=== PATIENT | female | born 1985 | race African-American/Black ===

== ENCOUNTER 2022-04-16 14:54 | Emergency (ER) | payer SELFPAY ==
[2022-04-16] MEDS ORDERED: IBUPROFEN 400 MG TAB ONE (15:31)
[2022-04-16] MEDS ORDERED: NA CHLORIDE 0.9% 1,000 ML ONE ×2 (15:31→17:06)
[2022-04-16 15:56] LABS: Absolute Lymphocytes (CBC) 1.8 K/uL (0.7-4.9); Hematocrit 31.8 % (36.0-45.0); Lymphocytes % 12.2 % (15.3-44.8); MCV 76.6 fL (80-100); MPV 7.6 fL (7.6-11.3); RBC Red Blood Cell Count 4.14 M/uL (3.86-4.86)
[2022-04-16 16:10] LABS: Potassium 2.9 mmol/L (3.5-5.1)
[2022-04-16] MEDS ORDERED: POTASSIUM CL SA 10 MEQ TAB PO ONE (16:14)
[2022-04-16 16:32] LABS: SARS-COV-2 RT PCR POSITIVE (NEGATIVE)
[2022-04-16] MEDS ORDERED: KCL 20 MEQ/100 mL IVPB 100 ML IV ONE (17:07)
[2022-04-16 17:09] LABS: Urine Blood 3+ (Negative); Urine Glucose Trace (Negative); Urine Protein 2+ (Negative); Urine Specific Gravity 1.015 (1.005-1.030)
--- NOTE | 2022-04-16 17:09 | RAD REPORT ---
EXAM DESCRIPTION: RAD - Chest Single View - 04/16/2022 5:02 pm CLINICAL HISTORY: Cough COMPARISON: No comparisons FINDINGS: Lines: None. Lungs: No evidence of edema or pneumonia. Pleural: No significant pleural effusions or pneumothorax. Cardiac: The heart size is within normal limits. Mediastinum: Within normal limits. Bones: No acute fractures. Other: None IMPRESSION: No acute cardiopulmonary disease.
[2022-04-16 17:27] LABS: Blood Morphology Comment NOT SEEN (NOT SEEN); Platelet Estimate ADEQ
[2022-04-16 18:41] LABS: Urine Specific Gravity/Preg 1.015 (1.005-1.030)
[2022-04-16 19:51] LABS: Potassium 3.4 mmol/L (3.5-5.1)
--- NOTE | 2022-04-16 20:01 | EDPHYS ---
Physician Documentation [facility] Name: Vicky Stearns Age: 37 yrs Sex: Female : 1985 Arrival Date: 04/16/2022 Time: 14:55 Bed 26 Private MD: ED Physician Navneet Lopez HPI: 04/16 16:03 This 37 yrs old Black Female presents to ER via Wheelchair with complaints of Fever, kb Congestion, Vomiting/Diarrhea, Breathing Difficulty. 16:03 The patient or guardian reports cough, that is intermittent, described as mild, flu kb symptoms, low-grade fever, myalgias. Onset: The symptoms/episode began/occurred 3 week(s) ago. Severity of symptoms: At their worst the symptoms were moderate, in the emergency department the symptoms are unchanged. Modifying factors: The symptoms are alleviated by nothing, the symptoms are aggravated by nothing. Associated signs and symptoms: Pertinent positives: diarrhea, fever, nausea, rhinorrhea, vomiting. The patient has not experienced similar symptoms in the past. The patient has not recently seen a physician. 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 - Social history:: Smoking status: Patient denies any tobacco usage or history of. ROS: 16:00 Cardiovascular: Negative for chest pain, palpitations, and edema. kb 16:00 Constitutional: Positive for body aches, chills, fatigue, fever, malaise. 16:00 ENT: Positive for rhinorrhea, sinus congestion. 16:00 Respiratory: Positive for cough, Negative for dyspnea on exertion, hemoptysis, orthopnea, pleurisy, shortness of breath, sputum production, wheezing. 16:00 Abdomen/GI: Positive for nausea, vomiting, and diarrhea, Negative for abdominal pain. 16:00 All other systems are negative. Exam: 16:02 Constitutional: This is a well developed, well nourished patient who is awake, alert, kb and in no acute distress. Head/Face: Normocephalic, atraumatic. ENT: Moist Mucous membranes Cardiovascular: Regular rate and rhythm with a normal S1 and S2. No gallops, murmurs, or rubs. No pulse deficits. Respiratory: Respirations even and unlabored. No increased work of breathing. Talking in full sentences Abdomen/GI: Soft, non-tender. No distention Skin: Warm, dry with normal turgor. Normal color. MS/ Extremity: Pulses equal, no cyanosis. Neurovascular intact. Full, normal range of motion. Neuro: Awake and alert, GCS 15, oriented to person, place, time, and situation. Moves all extremities. Normal gait. Psych: Awake, alert, with orientation to person, place and time. Behavior, mood, and affect are within normal limits. Vital Signs: 15:19 BP 108 / 93; Pulse 129; Resp 20; Temp 102.6; Pulse Ox 99% ; Weight 127.01 kg; Height 5 kb3 ft. 9 in. (175.26 cm); Pain 10/10; 16:15 BP 123 / 76; Pulse 120; Resp 18; Pulse Ox 99% on R/A; tp1 17:37 BP 130 / 75; Pulse 104; Resp 16; Pulse Ox 99% on R/A; tp1 18:39 BP 122 / 79; Pulse 95; Resp 20; Pulse Ox 100% on R/A; tp1 19:21 Temp 99.2; tp1 15:19 Body Mass Index 41.35 (127.01 kg, 175.26 cm) kb3 MDM: 15:23 Patient medically screened. kb 16:01 Data reviewed: vital signs, nurses notes. Data interpreted: Pulse oximetry: on room air kb is 99 %. Interpretation: normal. 04/16 15:24 Order name: CBC with Diff; Complete Time: 17:27 kb 04/16 15:24 Order name: Basic Metabolic Panel; Complete Time: 16:12 kb 04/16 15:24 Order name: COVID-19/FLU A+B; Complete Time: 16:35 kb 04/16 16:00 Order name: Manual Differential; Complete Time: 17:27 EDMS 04/16 16:04 Order name: [place] Screen Profile; Complete Time: 16:23 kb 04/16 15:24 Order name: Chest Single View XRAY; Complete Time: 17:13 kb 04/16 16:58 Order name: Lactate w/ 2H reflex if indic.; Complete Time: 17:27 EDNE 04/16 16:58 Order name: Blood Culture [facility] 04/16 17:09 Order name: Urine --Ancillary (enter results); Complete Time: 18:42 kj1 04/16 17:10 Order name: Urine Dipstick-Ancillary; Complete Time: 17:13 EDNE 04/16 17:38 Order name: Blood Culture [facility] 04/16 18:43 Order name: BMP; Complete Time: 19:53 kb 04/16 15:24 Order name: IV Start; Complete Time: 15:45 kb 04/16 18:33 Order name: Vital Signs; Complete Time: 18:41 kb 04/16 19:04 Order name: Recheck Vital Signs: Temp please; Complete Time: 19:22 snw Administered Medications: 15:45 Drug: Ibuprofen 800 mg Route: PO; tp1 17:18 Follow up: Response: Pain is decreased tp1 15:45 Drug: NS 0.9% 1000 ml Route: IV; Rate: 1000 ml; Site: left antecubital; tp1 17:18 Follow up: IV Status: Completed infusion; IV Intake: 1000ml tp1 16:20 Drug: Potassium Chloride 40 mEq Route: PO; tp1 17:14 Drug: Potassium Chloride 20 mEq Route: IV; Rate: calculated rate; Site: left tp1 antecubital; 17:17 Drug: NS 0.9% 1000 ml Route: IV; Rate: 125 ml/hr; Site: left antecubital; tp1 Disposition: 17:21 Co-signature as Attending Physician, Navneet CRAWFORD was immediately available on-site ms3 in the Emergency Department for consultation in the care of the patient. Disposition Summary: 04/16/22 20:00 Discharge Ordered Location: Home snw Condition: Stable snw Diagnosis - SARS-associated coronavirus as the cause of diseases classified elsewhere snw - Hypokalemia snw - Dehydration snw Followup: snw - With: Emergency Department - When: As needed - Reason: Worsening of condition Followup: snw - With: Private Physician - When: 5 - 6 days - Reason: Recheck today's complaints, Continuance of care, Re-evaluation by your physician Discharge Instructions: - Discharge Summary Sheet snw - Dehydration, Adult snw - Potassium Content of Foods snw - Aspirin and Your Heart snw - Hypokalemia snw - Rehydration, Adult snw - COVID-19 snw - 10 Things You Can Do to Manage Your COVID-19 Symptoms at Home - [facility] snw - COVID-19: Quarantine vs. Isolation - [facility] snw Forms: - Medication Reconciliation Form snw - Thank You Letter snw - Antibiotic Education snw - Prescription Opioid Use snw - Work release form hb Prescriptions: - Zyrtec 10 mg Oral Tablet - take 1 tablet by ORAL route once daily As needed; 20 tablet; Refills: 0, snw Product Selection Permitted - Prednisone 20 mg Oral Tablet - take 2 tablets by ORAL route once daily for 5 days; 10 tablet; Refills: 0, snw Product Selection Permitted - Pepcid 20 mg Oral Tablet - take 1 tablet by ORAL route once daily; 20 tablet; Refills: 0, Product snw Selection Permitted Signatures: Dispatcher [employer] EDMS Renay Ybarra FNP-C FNP-Ckb Suzette Zurita FNP-C FNP-Navneet Riojas DO DO ms3 Vicky Hankins, RN RN tp1 Abiola Olivares RN RN kb3 Corrections: (The following items were deleted from the chart) 15:24 15:23 PSHx: None; kb3 kb3 18:34 18:26 BLOOD CULTURE*+BA.LAB.BRZ ordered. EDMS EDMS 18:34 18:26 LACTATE+C.LAB.BRZ ordered. EDMS EDMS
--- NOTE | 2022-04-16 20:01 | ER ---
Nurse's Notes [facility] Name: Vicky Stearns Age: 37 yrs Sex: Female : 1985 Arrival Date: 04/16/2022 Time: 14:55 Bed 26 Private MD: Diagnosis: SARS-associated coronavirus as the cause of diseases classified elsewhere;Hypokalemia;Dehydration Presentation: 04/16 15:19 Chief complaint: Patient states: fever, congestion, cough, diarrhea, nausea/vomiting kb3 since the beginning of the month, worse over the last week. Coronavirus screen: Vaccine status: Patient reports receiving the 2nd dose of the covid vaccine. Client denies travel out of the [place] in the last 14 days. Ebola Screen: Patient negative for fever greater than or equal to 101.5 degrees Fahrenheit, and additional compatible Ebola Virus Disease symptoms Patient denies exposure to infectious person. Patient denies travel to an Ebola-affected area in the 21 days before illness onset. Initial Sepsis Screen: Does the patient meet any 2 criteria? Temp <36.0*C (96.8*F)) or > 38.3*C (100.9*F). HR > 90 bpm. Yes Does the patient have a suspected source of infection? No. Patient's initial sepsis screen is negative. Initial Sepsis Screen: Does the patient have a suspected source of infection? Yes: Productive cough/pneumonia. Risk Assessment: Do you want to hurt yourself or someone else?. Onset of symptoms was March 22, 2022. 15:19 Method Of Arrival: Wheelchair kb3 15:19 Acuity: JASON 3 kb3 Triage Assessment: 15:23 General: Appears in no apparent distress. ill, Behavior is calm, cooperative. kb3 Respiratory: Reports shortness of breath cough that is Airway Breath sounds are clear. 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 - Social history:: Smoking status: Patient denies any tobacco usage or history of. Screenin:18 Abuse screen: Denies threats or abuse. Denies injuries from another. Nutritional tp1 screening: No deficits noted. Tuberculosis screening: No symptoms or risk factors identified. Fall Risk None identified. Assessment: 15:47 General: Appears in no apparent distress. uncomfortable, Behavior is calm, cooperative. tp1 Pain: Complains of pain in generalized body Pain does not radiate. Quality of pain is described as aching. Pain: Pain currently is 7 out of 10 on a pain scale. Neuro: Level of Consciousness is awake, alert, obeys commands, Oriented to person, place, time, situation. Cardiovascular: Patient's skin is warm and dry. Respiratory: Airway is patent Respiratory effort is even, unlabored. Respiratory: Reports cough that is. GI: Abdomen is obese, Abd is soft X 4 quads Abdomen is tender to palpation in right upper quadrant Reports diarrhea, nausea, vomiting. : No signs and/or symptoms were reported regarding the genitourinary system. EENT: Reports nasal congestion. Derm: Skin is pink, warm \T\ dry. Musculoskeletal: Circulation, motion, and sensation intact. 16:55 Reassessment: Patient appears in no apparent distress at this time. No changes from tp1 previously documented assessment. Patient and/or family updated on plan of care and expected duration. Pain level reassessed. Patient is alert, oriented x 3, equal unlabored respirations, skin warm/dry/pink. 17:17 Reassessment: received VO from EDWARD Ybarra to Administer NS 1000ml IV X1. tp1 18:38 Reassessment: Patient appears in no apparent distress at this time. No changes from tp1 previously documented assessment. Patient is alert, oriented x 3, equal unlabored respirations, skin warm/dry/pink. Vital Signs: 15:19 BP 108 / 93; Pulse 129; Resp 20; Temp 102.6; Pulse Ox 99% ; Weight 127.01 kg; Height 5 kb3 ft. 9 in. (175.26 cm); Pain 10/10; 16:15 BP 123 / 76; Pulse 120; Resp 18; Pulse Ox 99% on R/A; tp1 17:37 BP 130 / 75; Pulse 104; Resp 16; Pulse Ox 99% on R/A; tp1 18:39 BP 122 / 79; Pulse 95; Resp 20; Pulse Ox 100% on R/A; tp1 19:21 Temp 99.2; tp1 15:19 Body Mass Index 41.35 (127.01 kg, 175.26 cm) kb3 ED Course: 14:55 Patient arrived in ED. as 14:59 Renay Ybarra FNP-C is PHCP. kb 14:59 Navneet Lopez DO is Attending Physician. kb 15:23 Triage completed. kb3 15:23 Arm band placed on right wrist. kb3 15:28 Vicky Hankins, RN is Primary Nurse. tp1 15:49 No provider procedures requiring assistance completed. Inserted saline lock: 20 gauge tp1 in left antecubital area, using aseptic technique. Blood collected. 16:50 First set of blood cultures drawn. mm9 16:54 Patient has correct armband on for positive identification. Bed in low position. Call mm9 light in reach. Side rails up X 1. Adult w/ patient. Pulse ox on. NIBP on. 17:04 Chest Single View XRAY In Process Unspecified. EDMS 17:09 Lactate w/ 2H reflex if indic. Sent. mm9 17:09 Blood Culture Sent. mm9 19:03 PHCP role handed off by Renay Ybarra FNP-C snw 19:03 Suzette Zurita FNP-C is PHCP. snw 20:14 IV discontinued, intact, bleeding controlled, No redness/swelling at site. Pressure hb dressing applied. Administered Medications: 15:45 Drug: Ibuprofen 800 mg Route: PO; tp1 17:18 Follow up: Response: Pain is decreased tp1 15:45 Drug: NS 0.9% 1000 ml Route: IV; Rate: 1000 ml; Site: left antecubital; tp1 17:18 Follow up: IV Status: Completed infusion; IV Intake: 1000ml tp1 16:20 Drug: Potassium Chloride 40 mEq Route: PO; tp1 17:14 Drug: Potassium Chloride 20 mEq Route: IV; Rate: calculated rate; Site: left tp1 antecubital; 17:17 Drug: NS 0.9% 1000 ml Route: IV; Rate: 125 ml/hr; Site: left antecubital; tp1 Medication: 17:20 VIS not applicable for this client. tp1 Intake: 17:18 IV: 1000ml; Total: 1000ml. tp1 Outcome: 20:00 Discharge ordered by . alycia 20:14 Discharged to home ambulatory. hb 20:14 Condition: stable 20:14 Discharge instructions given to patient, Instructed on discharge instructions, follow up and referral plans. medication usage, Demonstrated understanding of instructions, follow-up care, medications, Prescriptions given X 3. 20:15 Patient left the ED. hb Signatures: Dispatcher [employer] EDMS Renay Ybarra, PHIILP MATTHEWS-Suzette Daniel FNP-Zenon MATTHEWS-Anat Mccoy as Savannah Chen, RN RN Vicky Hankins RN RN tp1 Abiola Olivares RN RN [email or web address] Elayne Farrell mm9 Corrections: (The following items were deleted from the chart) 15:24 15:23 PSHx: None; kb3 kb3
[2022-04-16 20:46] VITALS: BP 122/79; O2SAT 100
[2022-04-16 20:47] VITALS: TEMP 99.2
== END 2022-04-16 20:15 | disposition home or self-care (01) ==
LOC: ER 14:54
DX: U07.1 COVID-19 (principal); E87.6 Hypokalemia; E86.0 Dehydration; Z88.0 Allergy status to penicillin
CPT/HCPCS: 0240U; 36415; 71045; 80048; 81003; 81025; 83605; 85025; 86308; 87040; 96361; 96374; 99284; J3480; J7030

== ENCOUNTER 2022-07-20 17:57 | Emergency (ER) | payer SELFPAY ==
[2022-07-20] MEDS ORDERED: NA CHLORIDE 0.9% 1,000 ML ONE ×2 (19:29→20:26)
[2022-07-20] MEDS ORDERED: KETOROLAC 30 MG/ML INJ ONE (19:29)
[2022-07-20] MEDS ORDERED: FAMOTIDINE 20 MG/2 ML VIAL IV ONE (19:29)
[2022-07-20] MEDS ORDERED: ONDANSETRON 4 MG/2 ML VIAL ONE (19:29)
[2022-07-20 19:40] LABS: Urine Blood 3+ (Negative); Urine Glucose Negative (Negative); Urine Protein 3+ (Negative); Urine Specific Gravity 1.015 (1.005-1.030)
[2022-07-20 19:45] LABS: Absolute Lymphocytes (CBC) 1.4 K/uL (0.7-4.9); Hematocrit 30.1 % (36.0-45.0); Lymphocytes % 8.1 % (15.3-44.8); MCV 75.9 fL (80-100); MPV 6.7 fL (7.6-11.3); RBC Red Blood Cell Count 3.97 M/uL (3.86-4.86)
[2022-07-20 20:05] LABS: Transitional Epithelial <5 /HPF (None Seen); Urine Bacteria <20 /HPF (<20); Urine Mucus Slight /HPF (None Seen); Urine RBC >50 /HPF (None Seen)
[2022-07-20 20:07] LABS: Albumin 2.6 g/dL (3.4-5.0); Bilirubin Total 0.3 mg/dL (0.2-1.0); Protein, Total 10.1 g/dL (6.4-8.2)
[2022-07-20] MEDS ORDERED: MORPHINE 4 MG/ML SYR ONE (20:07)
[2022-07-20 20:10] LABS: Potassium 2.7 mmol/L (3.5-5.1)
[2022-07-20] MEDS ORDERED: KCL 20 MEQ/100 mL IVPB 200 ML IV ONE (20:25)
--- NOTE | 2022-07-20 21:06 | RAD REPORT ---
EXAM DESCRIPTION: US - Abdomen Exam Limited - 07/20/2022 8:32 pm CLINICAL HISTORY: ABD PAIN COMPARISON: No comparisons FINDINGS: The gallbladder demonstrates extensive cholelithiasis. No pericholecystic fluid or gallbla dder wall thickening. The common bile duct is normal measuring 3 mm. The liver demonstrates no findings of intrahepatic biliary dilatation. IMPRESSION: Extensive cholelithiasis.
--- NOTE | 2022-07-20 21:44 | RAD REPORT ---
EXAM DESCRIPTION: CTAbdomen Pelvis W Contrast - 07/20/2022 9:23 pm CLINICAL HISTORY: Abdominal pain. ABD PAIN COMPARISON: No comparisons TECHNIQUE: Biphasic CT imaging of the abdomen and pelvis was performed with 100 ml non-ionic IV cont rast. All CT scans are performed using dose optimization technique as appropriate and may include automated exposure control or mA/KV adjustment according to patient size. FINDINGS: The lung bases are clear. The liver, spleen, pancreas, adrenal glands and kidneys are within normal limits. No bowel obstruction or free air. Nonvisualized appendix. There is a in abnormal thick walled large f luid collection in the upper pelvis measuring 13.0 x 8.0 x 10.0 cm. This contains small air bubbles. This appears to communicate with multiple loculated cystic lesions along the right aspect of the uter us. Mild surrounding fat stranding. No evidence of significant lymphadenopathy. IUD is present. No suspicious bony findings. IMPRESSION: Large, thick walled solid and cystic lesion is identified in the right aspect of the pel vis superior to the uterus as described. Most likely this is related to infection/ tubo-ovarian absce ss. Due to the location, this collection would not be amenable to percutaneous drainage.
[2022-07-20 22:17] LABS: Urine Specific Gravity/Preg 1.015 (1.005-1.030)
[2022-07-20] MEDS ORDERED: NA CHLORIDE 0.9% 100 ML ONE (22:31)
[2022-07-20] MEDS ORDERED: CEFOXITIN SODIUM 1 GM/VIAL ONE (22:31)
[2022-07-20] MEDS ORDERED: DOXYCYCLINE HYCLATE 100MG INJ ONE (23:00)
[2022-07-20 23:07] LABS: SARS-CoV-2 Antigen Rapid Res Negative (Negative)
[2022-07-20] MEDS ORDERED: NA CHLORIDE 0.9% 50 ML ONE (23:13)
--- NOTE | 2022-07-20 23:26 | ER ---
Nurse's Notes [facility] Name: Vicky Stearns Age: 37 yrs Sex: Female : 1985 Arrival Date: 07/20/2022 Time: 17:59 Bed 16 Private MD: Diagnosis: tubo-Ovarian abscess;Sepsis, unspecified organism Presentation: 07/20 18:07 Chief complaint: Patient states: cant stop vomiting and diarrhea for 7 days and jh5 everything that comes out is water. It's been going on for 7 days with fever with abdominal pain. Coronavirus screen: Vaccine status: Patient reports receiving the 2nd dose of the covid vaccine. Client denies travel out of the [place] in the last 14 days. Ebola Screen: Patient negative for fever greater than or equal to 101.5 degrees Fahrenheit, and additional compatible Ebola Virus Disease symptoms Patient denies exposure to infectious person. Patient denies travel to an Ebola-affected area in the 21 days before illness onset. Initial Sepsis Screen: Does the patient meet any 2 criteria? No. Patient's initial sepsis screen is negative. Does the patient have a suspected source of infection? No. Patient's initial sepsis screen is negative. Risk Assessment: Do you want to hurt yourself or someone else? Patient reports no desire to harm self or others. 18:07 Method Of Arrival: Ambulatory [facility] 18:07 Acuity: JASON 3 jh5 23:44 Onset of symptoms is unknown. lg3 Triage Assessment: 18:09 General: Appears in no apparent distress. uncomfortable, obese, Behavior is calm, jh5 cooperative, appropriate for age. Pain: Complains of pain in abdomen. GI: Reports lower abdominal pain, upper abdominal pain, diarrhea, nausea. 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 - Social history:: Smoking status: Patient denies any tobacco usage or history of. Screenin:27 [facility] ED Fall Risk Assessment (Adult) History of falling in the last 3 months, lg3 including since admission No falls in past 3 months (0 pts). Abuse screen: Denies threats or abuse. Denies injuries from another. Nutritional screening: No deficits noted. Tuberculosis screening: No symptoms or risk factors identified. Assessment: 19:27 General: Appears in no apparent distress. uncomfortable, Behavior is calm, cooperative. lg3 Pain: Complains of pain in abdomen. Neuro: No deficits noted. [place] Agitation-Sedation Scale (RASS): 0 - Alert and Calm Level of Consciousness is awake, alert, obeys commands, Oriented to person, place, time, situation. Cardiovascular: No deficits noted. Denies chest pain, shortness of breath, Capillary refill < 3 seconds Clubbing of nail beds is absent JVD is absent. Respiratory: No deficits noted. Airway is patent Trachea midline Respiratory effort is even, unlabored, Respiratory pattern is regular, symmetrical. GI: Abdomen is round non-distended, obese, Bowel sounds present X 4 quads. Abd is soft X 4 quads Abdomen is tender to palpation in left lower quadrant Reports lower abdominal pain, upper abdominal pain, diarrhea, intolerance of fluids, intolerance of food, nausea, vomiting. : No deficits noted. No signs and/or symptoms were reported regarding the genitourinary system. EENT: No deficits noted. No signs and/or symptoms were reported regarding the EENT system. Derm: No deficits noted. No signs and/or symptoms reported regarding the dermatologic system. Skin is intact, is healthy with good turgor, Skin is dry, Skin is normal. Musculoskeletal: No deficits noted. No signs and/or symptoms reported regarding the musculoskeletal system. Circulation, motion, and sensation intact. Range of motion: intact in all extremities. 19:50 Pain: Complains of pain in diaphragm Pain radiates to back Pain currently is 9 out of lg3 10 on a pain scale. 21:22 Reassessment: Patient appears in no apparent distress at this time. No changes from lg3 previously documented assessment. Patient and/or family updated on plan of care and expected duration. Pain level reassessed. Patient is alert, oriented x 3, equal unlabored respirations, skin warm/dry/pink. Patient states symptoms have improved. 22:56 Reassessment: Patient appears in no apparent distress at this time. No changes from lg3 previously documented assessment. Patient and/or family updated on plan of care and expected duration. Pain level reassessed. Patient is alert, oriented x 3, equal unlabored respirations, skin warm/dry/pink. 23:44 General: report called to WILY Rinaldi. lg3 Vital Signs: 18:07 BP 120 / 84; Pulse 131; Resp 18; Temp 99.9; Pulse Ox 96% ; Weight 122.47 kg; Height 5 5 ft. 9 in. (175.26 cm); Pain 10/10; 21:23 BP 126 / 81; Pulse 112; Resp 18; Temp 99.4(O); Pulse Ox 97% on R/A; Pain 5/10; lg3 22:57 BP 114 / 72; Pulse 115; Resp 17 S; Pulse Ox 100% on R/A; lg3 18:07 Body Mass Index 39.87 (122.47 kg, 175.26 cm) 5 ED Course: 17:59 Patient arrived in ED. rg4 18:04 [facility]bar[facility]-C [facility]. kb 18:04 Ari Benz MD is Attending Physician. kb 18:09 Triage completed. 5 18:09 Arm band placed on right wrist. 5 19:27 Ines Garzon, RN is Primary Nurse. lg3 19:27 Patient has correct armband on for positive identification. Placed in gown. Bed in low lg3 position. Call light in reach. Side rails up X 1. Client placed on continuous cardiac and pulse oximetry monitoring. NIBP monitoring applied. Door closed. Noise minimized. Warm blanket given. Family accompanied patient. 19:39 CBC with Diff Sent. lg3 19:39 CMP Sent. lg3 19:39 Lipase Sent. lg3 19:41 Inserted saline lock: 20 gauge in left antecubital area, using aseptic technique. Blood oe collected. 19:46 Urine --Ancillary (enter results) Sent. lg3 19:46 Urine Microscopic Only Sent. lg3 19:53 Attending Physician role handed off by Ari Benz MD rt 19:53 Patrick Osorio MD is Attending Physician. rt 20:38 Magnesium Sent. lg3 22:20 SARS RAPID Sent. lg3 23:13 Inserted saline lock: 22 gauge in right hand, using aseptic technique. lg3 23:14 Urine Culture Sent. lg3 23:44 No provider procedures requiring assistance completed. Patient transferred, IV remains lg3 in place. intact, No redness/swelling at site. Administered Medications: 19:39 Drug: NS 0.9% 1000 ml Route: IV; Rate: 1 bolus; Site: left antecubital; lg3 23:14 Follow up: IV Status: Completed infusion; IV Intake: 1000ml lg3 19:39 Drug: Pepcid (famotidine) 20 mg Route: IVP; Site: left antecubital; lg3 23:14 Follow up: Response: No adverse reaction lg3 19:39 Drug: TORadol - (ketorolac) 15 mg Route: IVP; Site: left antecubital; lg3 23:14 Follow up: Response: No adverse reaction lg3 19:41 Drug: Zofran (Ondansetron) 4 mg Route: IVP; Site: left antecubital; lg3 23:13 Follow up: Response: No adverse reaction; Marked relief of symptoms lg3 20:05 Drug: morphine 4 mg Route: IVP; Infused Over: 4 mins; Site: left antecubital; lg3 23:14 Follow up: Response: No adverse reaction; Marked relief of symptoms lg3 20:38 Drug: Potassium Chloride 40 mEq Route: IV; Rate: calculated rate; Site: left lg3 antecubital; 23:16 Follow up: Response: No adverse reaction; IV Status: Completed infusion; IV Intake: lg3 100ml 20:46 Drug: NS 0.9% 1000 ml Route: IV; Rate: 1000 ml; Site: left antecubital; lg3 07/21 00:22 Follow up: IV Status: Completed infusion; IV Intake: 1000ml lg3 07/20 23:13 Drug: cefOXitin 2 grams Route: IVPB; Infused Over: 30 mins; Site: right hand; lg3 23:43 Follow up: Response: No adverse reaction; IV Status: Completed infusion; IV Intake: lg3 100ml 23:42 Drug: Doxycycline 100 mg Route: IV; Rate: calculated rate; Site: right hand; lg3 07/21 00:21 Follow up: Response: No adverse reaction; IV Status: Completed infusion; IV Intake: [id number] 00:21 Drug: morphine 4 mg Route: IVP; Infused Over: 4 mins; Site: right hand; lg3 00:21 Follow up: Response: No adverse reaction; Marked relief of symptoms lg3 00:21 Drug: Zofran (Ondansetron) 4 mg Route: IVP; Site: right hand; lg3 00:21 Follow up: Response: No adverse reaction; Marked relief of symptoms lg3 Medication: 07/20 23:44 VIS not applicable for this client. lg3 Intake: 23:14 IV: 1000ml; Total: 1000ml. lg3 23:16 IV: 100ml; Total: 1100ml. lg3 23:43 IV: 100ml; Total: 1200ml. lg3 03 00:21 IV: 50ml; Total: 1250ml. lg3 00:22 IV: 1000ml; Total: 2250ml. lg3 Outcome: 07/20 23:25 ER care complete, transfer ordered by . rt 23:44 Transferred by ground EMS to [facility], [facility], Transfer form completed. lg3 23:44 Condition: stable 23:44 Instructed on the need for transfer, Demonstrated understanding of instructions. 07/21 00:22 Patient left the ED. lg3 Signatures: Renay Ybarra, CASSIE-C CLIENT CARE REPRESENTATIVE-Michell Liriano 4 Mukesh Navarro Lacie, RN RN lg3 Jeanie Rodgers, WILY RN jh5 Patrick Osorio MD MD rt
--- NOTE | 2022-07-20 23:26 | EDPHYS ---
Physician Documentation [facility] Name: Vicky Stearns Age: 37 yrs Sex: Female : 1985 Arrival Date: 07/20/2022 Time: 17:59 Bed 16 Private MD: ED Physician Patrick Osorio HPI: 07/20 18:52 This 37 yrs old Black Female presents to ER via Ambulatory with complaints of kb Nausea/Vomiting/Diarrhea, Abdominal Pain. 18:52 The patient presents to the emergency department with nausea, vomiting, diarrhea, kb abdominal pain. Onset: The symptoms/episode began/occurred 7 day(s) ago. Possible causes: unknown. The symptoms are aggravated by nothing. The symptoms are alleviated by nothing. Associated signs and symptoms: Pertinent positives: abdominal pain, diarrhea, fever, nausea, vomiting. Severity of symptoms: At their worst the symptoms were moderate in the emergency department the symptoms are unchanged. The patient has not experienced similar symptoms in the past. The patient has not recently seen a physician. 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 - Social history:: Smoking status: Patient denies any tobacco usage or history of. ROS: 18:51 Respiratory: Negative for shortness of breath, cough, wheezing, and pleuritic chest kb pain. 18:51 Constitutional: Positive for fever. 18:51 Abdomen/GI: Positive for abdominal pain, nausea, vomiting, and diarrhea. 18:51 All other systems are negative. Exam: 18:51 Constitutional: This is a well developed, well nourished patient who is awake, alert, kb and in no acute distress. Head/Face: Normocephalic, atraumatic. ENT: Moist Mucous membranes Cardiovascular: Regular rate and rhythm with a normal S1 and S2. No gallops, murmurs, or rubs. No pulse deficits. Respiratory: Respirations even and unlabored. No increased work of breathing. Talking in full sentences Skin: Warm, dry with normal turgor. Normal color. MS/ Extremity: Pulses equal, no cyanosis. Neurovascular intact. Full, normal range of motion. Neuro: Awake and alert, GCS 15, oriented to person, place, time, and situation. Moves all extremities. Normal gait. Psych: Awake, alert, with orientation to person, place and time. Behavior, mood, and affect are within normal limits. 18:51 Abdomen/GI: Inspection: abdomen appears normal, Bowel sounds: normal, Palpation: soft, in all quadrants, moderate abdominal tenderness, in the left lower quadrant. 21:25 ECG was reviewed by the Attending Physician. rt Vital Signs: 18:07 BP 120 / 84; Pulse 131; Resp 18; Temp 99.9; Pulse Ox 96% ; Weight 122.47 kg; Height 5 jh5 ft. 9 in. (175.26 cm); Pain 10/10; 21:23 BP 126 / 81; Pulse 112; Resp 18; Temp 99.4(O); Pulse Ox 97% on R/A; Pain 5/10; lg3 22:57 BP 114 / 72; Pulse 115; Resp 17 S; Pulse Ox 100% on R/A; lg3 18:07 Body Mass Index 39.87 (122.47 kg, 175.26 cm) 5 MDM: 18:04 Patient medically screened. kb 18:52 Differential diagnosis: Nonspecific abd pain, diverticulitis, viral gastroenteritis. kb Data reviewed: vital signs, nurses notes. 19:54 Transition of care: After a detail discussion of the patient's case, care is kb transferred to Patrick Osorio MD. 23:26 Consideration of Admission/Observation Decision was made to transfer patient for higher rt level of care. 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 I considered the following discharge prescriptions or medication management in the emergency department Medications were administered in the Emergency Department. See MAR. Independent interpretation of the following test(s) in the Emergency Department CT Scan: My interpretation is Abscess visualized on my interpretation of the CT scan images. Counseling: I had a detailed discussion with the patient and/or guardian regarding: the historical points, exam findings, and any diagnostic results supporting the discharge/admit diagnosis, lab results, radiology results, the need to transfer to another facility. 07/20 18:15 Order name: CBC with Diff; Complete Time: 19:50 kb 07/20 18:15 Order name: CMP; Complete Time: 20:15 kb 07/20 18:15 Order name: Lipase; Complete Time: 20:15 kb 07/20 18:15 Order name: CT Abd/Pelvis - IV Contrast Only kb 07/20 18:15 Order name: IV Saline Lock; Complete Time: 19:39 kb 07/20 18:15 Order name: Labs collected and sent; Complete Time: 19:39 kb 07/20 18:15 Order name: Urine Dipstick-Ancillary (obtain specimen); Complete Time: 19:39 kb 07/20 19:40 Order name: Urine Dipstick-Ancillary; Complete Time: 19:41 EDMS 07/20 19:41 Order name: Urine Microscopic Only; Complete Time: 20:15 kb 07/20 19:42 Order name: Urine --Ancillary (enter results); Complete Time: 22:25 ds4 07/20 19:51 Order name: Lactate w/ 2H reflex if indic.; Complete Time: 22:03 kb 07/20 19:51 Order name: Blood Culture Adult (2) kb 07/20 19:58 Order name: US Abdomen Limited kb 07/20 20:16 Order name: Magnesium rt 07/20 20:17 Order name: EKG; Complete Time: 20:17 rt 07/20 20:17 Order name: EKG - Nurse/Tech; Complete Time: 20:45 rt 07/20 20:34 Order name: Magnesium; Complete Time: 20:42 EDMS 07/20 21:07 Order name: US; Complete Time: 21:08 EDMS 07/20 21:45 Order name: CT; Complete Time: 22:03 EDMS 07/20 22:01 Order name: SARS RAPID ds4 07/20 23:08 Order name: SARS-COV-2 Antigen Rapid EDMS 07/20 23:12 Order name: Urine Culture EDMS EC:25 Rate is 107 beats/min. Rhythm is regular, Sinus tachycardia with No ectopy. QRS [place] is rt Normal. [place] interval is normal. QRS interval is normal. QT interval is normal. No Q waves. Clinical impression: NSR w/ Non-specific ST/T Changes. Administered Medications: 19:39 Drug: NS 0.9% 1000 ml Route: IV; Rate: 1 bolus; Site: left antecubital; lg3 23:14 Follow up: IV Status: Completed infusion; IV Intake: 1000ml lg3 19:39 Drug: Pepcid (famotidine) 20 mg Route: IVP; Site: left antecubital; lg3 23:14 Follow up: Response: No adverse reaction lg3 19:39 Drug: TORadol - (ketorolac) 15 mg Route: IVP; Site: left antecubital; lg3 23:14 Follow up: Response: No adverse reaction lg3 19:41 Drug: Zofran (Ondansetron) 4 mg Route: IVP; Site: left antecubital; lg3 23:13 Follow up: Response: No adverse reaction; Marked relief of symptoms lg3 20:05 Drug: morphine 4 mg Route: IVP; Infused Over: 4 mins; Site: left antecubital; lg3 23:14 Follow up: Response: No adverse reaction; Marked relief of symptoms lg3 20:38 Drug: Potassium Chloride 40 mEq Route: IV; Rate: calculated rate; Site: left lg3 antecubital; 23:16 Follow up: Response: No adverse reaction; IV Status: Completed infusion; IV Intake: lg3 100ml 20:46 Drug: NS 0.9% 1000 ml Route: IV; Rate: 1000 ml; Site: left antecubital; lg3 07/21 00:22 Follow up: IV Status: Completed infusion; IV Intake: 1000ml lg3 07/20 23:13 Drug: cefOXitin 2 grams Route: IVPB; Infused Over: 30 mins; Site: right hand; lg3 23:43 Follow up: Response: No adverse reaction; IV Status: Completed infusion; IV Intake: lg3 100ml 23:42 Drug: Doxycycline 100 mg Route: IV; Rate: calculated rate; Site: right hand; lg3 07/21 00:21 Follow up: Response: No adverse reaction; IV Status: Completed infusion; IV Intake: [id number] 00:21 Drug: morphine 4 mg Route: IVP; Infused Over: 4 mins; Site: right hand; lg3 00:21 Follow up: Response: No adverse reaction; Marked relief of symptoms lg3 00:21 Drug: Zofran (Ondansetron) 4 mg Route: IVP; Site: right hand; lg3 00:21 Follow up: Response: No adverse reaction; Marked relief of symptoms lg3 Disposition: 07/20 23:26 Co-signature as Attending Physician, Patrick Osorio MD I reviewed the patient's care rt provided by Advanced Practice Provider \T\ agree w/ the diagnosis \T\ care plan. I personally saw the pt \T\ performed a substantive portion of the visit, incldng all aspects of the (History/Exam/Medical Decision Making). Disposition Summary: 07/20/22 23:25 Transfer Ordered Transfer Location: [facility] rt Reason: Higher level of care rt Condition: Fair rt Problem: new rt Symptoms: have improved rt Accepting Physician: Dr. Solorio(07/21/22 00:22) lg3 Diagnosis - tubo-Ovarian abscess rt - Sepsis, unspecified organism rt Discharge Instructions: - Discharge Summary Sheet lg3 Forms: - SBAR form lg3 - Medication Reconciliation Form rt Critical care time excluding procedures: 23:26 Critical care time: Bedside Care: 30 minutes, Consultation: 10 minutes. Total time: 40 rt minutes Signatures: Dispatcher [employer] EDRenay Flores, Ines Segovia RN RN lg3 Jeanie Rodgers RN RN jh5 Patrick Osorio MD MD rt Corrections: (The following items were deleted from the chart) 23:26 23:25 Dr. Solorio rt rt 07/21 00:22 07/20 23:26 Dr. Solorio rt lg3
[2022-07-21] MEDS ORDERED: MORPHINE 4 MG/ML SYR ONE (00:22)
[2022-07-21] MEDS ORDERED: ONDANSETRON 4 MG/2 ML VIAL ONE (00:22)
[2022-07-21 01:37] VITALS: TEMP 99.4
[2022-07-21 01:39] VITALS: BP 114/72; O2SAT 100
--- NOTE | 2022-07-21 17:26 | EKG ---
Test Date: 2022-07-20 Test Time: 20:56:31 Atomic Physics Teacher: NISHA MEASUREMENT RESULTS: Intervals: Rate: 107 HI: 138 QRSD: 90 QT: 330 QTc: 440 [place]: P: 44 HI: 138 QRS: 7 T: 2 INTERPRETIVE STATEMENTS: Sinus tachycardia Nonspecific ST and T wave abnormality Abnormal ECG No previous ECG available for comparison Electronically Signed On 07-21-22 17:25:37 ADJUNCT PSYCHOLOGY INSTRUCTOR by Yoel Carranza
== END 2022-07-21 00:22 | disposition short-term general hospital (02) ==
LOC: ER 17:57
DX: A41.9 Sepsis, unspecified organism (principal); N70.93 Salpingitis and oophoritis, unspecified; Z20.822 Contact with and (suspected) exposure to COVID-19
CPT/HCPCS: 36415; 74177; 76705; 80053; 81003; 81015; 81025; 83605; 83690; 83735; 85025; 87040; 87086; 87088; 87811; 93005; 99285; J0694; J2405; J3480; J7030; Q9967

== ENCOUNTER → 2023-07-09 | Emergency (ER) | payer SELFPAY ==
[~2023-07-09] MED LIST: ACETAMINOPHEN 500 MG TAB ONE
[2023-07-09 09:31] LABS: Absolute Lymphocytes (CBC) 1.6 K/uL (0.7-4.9); Hematocrit 38.8 % (36.0-45.0); Lymphocytes % 22.1 % (15.3-44.8); MCV 81.8 fL (80-100); MPV 8.1 fL (7.6-11.3); Platelets 332 thou/uL (152-406); RBC Red Blood Cell Count 4.74 M/uL (3.86-4.86)
[2023-07-09 09:43] LABS: Albumin 3.5 g/dL (3.4-5.0); Bilirubin Total 0.3 mg/dL (0.2-1.0); Potassium 4.1 mEq/L (3.5-5.1); Protein, Total 8.6 g/dL (6.4-8.2)
--- NOTE | 2023-07-09 10:14 | RAD REPORT ---
EXAM DESCRIPTION: CT - CTFBWCON CLINICAL HISTORY: facial swelling COMPARISON: HEAD BRAIN W O CONTRAST dated 02/09/2013 TECHNIQUE: Axial 2 mm thick images of the face were obtained with sagittal and coronal reconstructio n images. All CT scans are performed using dose optimization technique as appropriate and may include automated exposure control or mA/KV adjustment according to patient size. FINDINGS: No acute facial bone fracture is seen.The mandible is intact. The globes and orbital contents are grossly unremarkable. Trace right maxillary sins thickening. Left cheek swelling. Small abscess associated with a periapical lucency rising from the left mandibul ar second molar. The abscess measures approximately 20 mm x 2 mm as is localized along the cortex of the mandible. IMPRESSION: Small abscess associated with a left mandibular secondary molar periapical lucency.
--- NOTE | 2023-07-09 10:25 | ER ---
Nurse's Notes [facility] Name: Vicky Stearns Age: 38 yrs Sex: Female : 1985 Arrival Date: 07/09/2023 Time: 08:22 Bed 14 Private MD: Diagnosis: Periapical abscess without sinus Presentation: 07/09 08:36 Chief complaint: Fever x 4 days, left sided facial swelling and headache today. TMAX hb 102. Last had Motrin 600 mg at 0730. Coronavirus screen: At this time, the client does not indicate any symptoms associated with coronavirus-19. Ebola Screen: No symptoms or risks identified at this time. Initial Sepsis Screen: Does the patient meet any 2 criteria? HR > 90 bpm. No. Patient's initial sepsis screen is negative. Does the patient have a suspected source of infection? No. Patient's initial sepsis screen is negative. Risk Assessment: Do you want to hurt yourself or someone else? Patient reports no desire to harm self or others. Onset of symptoms was July 06, 2023. 08:36 Method Of Arrival: Ambulatory hb 08:36 Acuity: JASON 3 hb Historical: - Allergies: 08:38 PENICILLINS; hb - PMHx: 08:38 Asthma; hb - PSHx: 08:38 section; hb - Immunization history:: Adult Immunizations up to date. - Family history:: not pertinent. - Social history:: Smoking status: Patient denies any tobacco usage or history of. Screenin:45 [facility] ED Fall Risk Assessment (Adult) History of falling in the last 3 months, ko1 including since admission No falls in past 3 months (0 pts) Confusion or Disorientation No (0 pts) Intoxicated or Sedated No (0 pts) Impaired Gait No (0 pts) Mobility Assist Device Used No (0 pt) Altered Elimination No (0 pt) Score/Fall Risk Level 0 - 2 = Low Risk Oriented to surroundings, Maintained a safe environment, Educated pt \T\ family on fall prevention, incl call for assistance when getting out of bed, Assessed \T\ reinforced patient's understanding of fall precautions, Provided non-skid footwear, Hourly rounding (assess needs \T\ fall precautionary measures) done, Used ambulatory aids as needed (educated on \T\ assisted with), Used gait belt as appropriate. Abuse screen: Denies threats or abuse. Denies injuries from another. Nutritional screening: No deficits noted. Tuberculosis screening: No symptoms or risk factors identified. Assessment: 08:45 General: Appears in no apparent distress. uncomfortable, Behavior is calm, cooperative, ko1 appropriate for age. Pain: Complains of pain in left sided facial pain and headache. 10:42 Reassessment: Patient appears in no apparent distress at this time. Patient is alert, nj1 oriented x 3, equal unlabored respirations, skin warm/dry/pink. Vital Signs: 08:36 BP 162 / 115; Pulse 103; Resp 18; Temp 98.4(O); Pulse Ox 100% on R/A; Weight 122.47 kg; hb Height 5 ft. 9 in. ; Pain 10/10; 08:45 BP 165 / 102; Pulse 98; Resp 16; Pulse Ox 100% ; ko1 10:42 BP 148 / 109; Pulse 74; Resp 17; Pulse Ox 100% on R/A; Pain 8/10; nj1 08:36 Body Mass Index 39.87 (122.47 kg, 175.26 cm) hb 08:36 Pain Scale: Adult hb 10:42 Pain Scale: Adult nj1 ED Course: 08:25 Patient arrived in ED. im 08:26 Patrick Osorio MD is Attending Physician. rt 08:38 Triage completed. hb 08:38 Arm band placed on. hb 08:45 Patient has correct armband on for positive identification. Bed in low position. Call ko1 light in reach. Side rails up X 1. Pulse ox on. NIBP on. Door closed. Noise minimized. Lights dimmed. Warm blanket given. 08:46 Piedad King, WILY is Primary Nurse. ko1 09:19 Inserted saline lock: 22 gauge in right forearm, using aseptic technique. Blood ds4 collected. 10:05 CT Facial Bones W/ Con \T\ Mpr In Process Unspecified. EDMS 10:43 Provided Education on: discharge instructions. nj1 10:43 No provider procedures requiring assistance completed. IV discontinued, intact, nj1 bleeding controlled. Administered Medications: 08:49 Drug: Acetaminophen PO 1000 mg PO once Route: PO; ko1 10:43 Follow up: Response: No adverse reaction nj1 Medication: 08:45 VIS not applicable for this client. ko1 Outcome: 10:25 Discharge ordered by . rt 10:43 Discharged to home ambulatory, nj1 10:43 Condition: stable 10:43 Discharge instructions given to patient, Instructed on discharge instructions, follow up and referral plans. medication usage, Demonstrated understanding of instructions, follow-up care, medications, Prescriptions given X 1, 10:44 Patient left the ED. nj1 Signatures: Dispatcher [employer] EDMS Juli Celso ds4 Savannah Chen RN RN Piedad King RN RN ko1 Patrick Osorio MD MD rt Miriam Zapata RN RN nj1 Jess Heaton
--- NOTE | 2023-07-09 10:25 | EDPHYS ---
Physician Documentation [facility] Name: Vicky Stearns Age: 38 yrs Sex: Female : 1985 Arrival Date: 07/09/2023 Time: 08:22 Bed 14 Private MD: ED Physician Patrick Osorio HPI: 07/09 09:07 This 38 yrs old Black Female presents to ER via Ambulatory with complaints of Fever, rt Jaw Pain - swollen. 09:07 Patient presents to the ED with fever for about 3 days. She reports that she woke up rt this morning with pain, left-sided swelling to her lower jaw. Denies difficulty swallowing, dental pain. Denies other acute complaints, symptoms are moderate in severity, no other aggravating or elevating factors.. Historical: - Allergies: 08:38 PENICILLINS; hb - PMHx: 08:38 Asthma; hb - PSHx: 08:38 section; hb - Immunization history:: Adult Immunizations up to date. - Family history:: not pertinent. - Social history:: Smoking status: Patient denies any tobacco usage or history of. ROS: 09:07 Eyes: Negative for injury, pain, redness, and discharge, Cardiovascular: Negative for rt chest pain, palpitations, and edema, Respiratory: Negative for shortness of breath, cough, wheezing, and pleuritic chest pain, Abdomen/GI: Negative for abdominal pain, nausea, vomiting, diarrhea, and constipation, Skin: Negative for injury, rash, and discoloration, Neuro: Negative for headache, weakness, numbness, tingling, and seizure, Psych: Negative for depression, anxiety, suicide ideation, homicidal ideation, and hallucinations, 09:07 Constitutional: Positive for fever, Negative for malaise, 09:07 ENT: Positive for Facial swelling, pain, Exam: 09:07 Constitutional: This is a well developed, well nourished patient who is awake, alert, rt and in no acute distress. Head/Face: Normocephalic, atraumatic. Chest/axilla: Normal chest wall appearance and motion. Nontender with no deformity. No lesions are appreciated. Cardiovascular: Regular rate and rhythm with a normal S1 and S2. No gallops, murmurs, or rubs. Normal PMI, no JVD. No pulse deficits. Respiratory: Lungs have equal breath sounds bilaterally, clear to auscultation and percussion. No rales, rhonchi or wheezes noted. No increased work of breathing, no retractions or nasal flaring. Abdomen/GI: Soft, non-tender, with normal bowel sounds. No distension or tympany. No guarding or rebound. No evidence of tenderness throughout. Skin: Warm, dry with normal turgor. Normal color with no rashes, no lesions, and no evidence of cellulitis. MS/ Extremity: Pulses equal, no cyanosis. Neurovascular intact. Full, normal range of motion. Neuro: Awake and alert, GCS 15, oriented to person, place, time, and situation. Cranial nerves II-XII grossly intact. Motor strength 5/5 in all extremities. Sensory grossly intact. Cerebellar exam normal. Normal gait. Psych: Awake, alert, with orientation to person, place and time. Behavior, mood, and affect are within normal limits. 09:07 Head/face: Mild swelling noted at the left lower jaw, no erythema. 09:07 ENT: No obvious dental abscess, no posterior pharyngeal erythema or exudates, no pharyngeal swelling. Vital Signs: 08:36 BP 162 / 115; Pulse 103; Resp 18; Temp 98.4(O); Pulse Ox 100% on R/A; Weight 122.47 kg; hb Height 5 ft. 9 in. ; Pain 10/10; 08:45 BP 165 / 102; Pulse 98; Resp 16; Pulse Ox 100% ; ko1 10:42 BP 148 / 109; Pulse 74; Resp 17; Pulse Ox 100% on R/A; Pain 8/10; nj1 08:36 Body Mass Index 39.87 (122.47 kg, 175.26 cm) hb 08:36 Pain Scale: Adult hb 10:42 Pain Scale: Adult nj1 MDM: 08:36 Patient medically screened. rt 10:26 Differential diagnosis: Periapical abscess, parotiditis, parotid stone. Data reviewed: rt vital signs, nurses notes, lab test result(s), radiologic studies. Counseling: I had a detailed discussion with the patient and/or guardian regarding the historical points, exam findings, and any diagnostic results supporting the discharge/admit diagnosis, radiology results, the need for outpatient follow up. 07/09 08:42 Order name: CBC with Diff; Complete Time: 09:56 rt 07/09 08:42 Order name: CMP; Complete Time: 09:56 rt 07/09 08:42 Order name: Test, Serum; Complete Time: 09:56 rt 07/09 08:42 Order name: CT Facial Bones W/ Con \T\ Mpr; Complete Time: 10:19 rt Administered Medications: 08:49 Drug: Acetaminophen PO 1000 mg PO once Route: PO; ko1 10:43 Follow up: Response: No adverse reaction nj1 Disposition Summary: 07/09/23 10:25 Discharge Ordered Notes: Location: Home rt Problem: new rt Symptoms: have improved rt Condition: Stable rt Diagnosis - Periapical abscess without sinus rt Followup: rt - With: Private Physician - When: 5 - 6 days - Reason: Discharge Instructions: - Discharge Summary Sheet rt - Dental Abscess rt Forms: - Medication Reconciliation Form rt - Thank You Letter rt - Antibiotic Education rt - Prescription Opioid Use rt - Patient Portal Instructions rt - Leadership Thank You Letter rt Prescriptions: - Clindamycin HCl 300 mg Oral Capsule - take 1 capsule ORAL route every 6 hours for 10 days; 40 capsule; Refills: 0, rt Product Selection Permitted Signatures: Dispatcher [employer] Savannah Briscoe, RN RN Piedad King RN RN ko1 Patrick Osorio MD MD rt Miriam Zapata RN nj1
[2023-07-09 11:09] VITALS: BP 148/109; TEMP 98.4; O2SAT 100
== END ==
LOC: ER 08:22
DX: K04.7 Periapical abscess without sinus (principal); Z88.0 Allergy status to penicillin
CPT/HCPCS: 36415; 70487; 76377; 80053; 84703; 85025; Q9967

== ENCOUNTER 2024-06-21 22:58 | Emergency (ER) | payer SELFPAY ==
[2024-06-22] MEDS ORDERED: ONDANSETRON 4 MG (ODT) TAB ONE (00:45)
[2024-06-22] MEDS ORDERED: SMZ./TMP. 800/160 MG TABLET ONE (00:45)
[2024-06-22] MEDS ORDERED: LIDOCAINE 1% MPF 5 ML VIAL ONE (00:45)
[2024-06-22] MEDS ORDERED: HYDROCODONE/APAP 5/325 MG TAB ONE (00:46)
--- NOTE | 2024-06-22 01:06 | EDPHYS ---
Physician Documentation [facility] Name: Vicky Stearns Age: 39 yrs Sex: Female : 1985 Arrival Date: 06/21/2024 Time: 22:58 Bed 12 Private MD: ED Physician Nicko Tijerina HPI: 06/22 01:17 This 39 yrs old Black Female presents to ER via Ambulatory with complaints of Abscess. sb4 01:17 The patient presents with an abscess of the left jaw. patient reports abscess to left sb4 jawline x 1 year. states that she has had several sounds of antibiotics, specifically clindamycin, which make it much smaller but never fully resolve it. she had a telehealth appt regarding it a few weeks ago and was told to come to the ED if she developed any fever. she states that she has had intermittent fever and dizziness over the past few days. denies any drainage from the area. finished a round of clindamycin 1 week ago. TYPER: 06/21 23:47 LMP 06/13/2024, Not al5 Historical: - Allergies: 23:45 PENICILLINS; al5 - PMHx: 23:45 Asthma; al5 - PSHx: 23:45 section; TOA ( section); al5 - Immunization history:: Adult Immunizations up to date. - Infectious Disease History:: Denies. - Social history:: Smoking status: Patient denies any tobacco usage or history of. ROS: 06/22 01:17 Respiratory: Negative for shortness of breath, cough, wheezing, and pleuritic chest sb4 pain, Abdomen/GI: Negative for abdominal pain, nausea, vomiting, diarrhea, and constipation, Constitutional: Positive for fever, Skin: Positive for abscess, Neuro: Positive for dizziness, All other systems are negative, Exam: 01:17 Head/Face: Normocephalic, atraumatic. Eyes: Extra-ocular motions intact. Periorbital sb4 areas with no swelling, redness, or edema. ENT: Mucous membranes moist. Respiratory: No increased work of breathing, no retractions or nasal flaring. Neuro: Awake and alert, GCS 15, oriented to person, place, time, and situation. Motor strength 5/5 in all extremities. Sensory grossly intact. 01:17 Constitutional: The patient appears in no acute distress, alert, awake, obese, 01:17 Skin: abscess, that is small, approximately 3 cm(s), of the left jaw, with induration, Vital Signs: 06/21 23:43 BP 144 / 98; Pulse 97; Resp 16; Temp 98.9; Pulse Ox 100% on R/A; Weight 124.74 kg; al5 Height 5 ft. 9 in. ; Pain 8/10; 06/22 01:15 BP 137 / 91; Pulse 89; Resp 17 S; Temp 98.5(O); Pulse Ox 100% on R/A; lg3 06/21 23:43 Body Mass Index 40.61 (124.74 kg, 175.26 cm) al5 06/21 23:43 Pain Scale: Adult al5 Procedures: 01:22 I \T\ D: Incision and drainage was performed for an abscess of the left left jaw Prepped sb4 with Chelsi . Anesthetized with 1 ml's 1% Lidocaine. Incised with #11 blade. Drained small amount serosanguinous fluid. Cultures obtained. Dressing: bandaid the patient tolerated the procedure well. MDM: 06/21 23:47 Medical Screening Exam initiated sb4 06/22 01:22 Data reviewed: vital signs, nurses notes, lab test result(s), and as a result, I will sb4 discharge patient. Counseling: I had a detailed discussion with the patient and/or guardian regarding the historical points, exam findings, and any diagnostic results supporting the discharge/admit diagnosis, lab results, to return to the emergency department if symptoms worsen or persist or if there are any questions or concerns that arise at home. 06/22 00:29 Order name: Glucose, Ancillary Testing; Complete Time: 00:33 EDMS 06/22 01:05 Order name: Wound Culture sb4 06/22 00:10 Order name: Accucheck; Complete Time: 00:42 sb4 06/22 00:20 Order name: Incision \T\ Drainage Setup; Complete Time: 00:49 sb4 Administered Medications: 00:49 Drug: Trimethoprim-Sulfamethoxazole PO (160 mg-800 mg (DS) 1 tablet PO once Route: PO; lg3 01:08 Follow up: Response: No adverse reaction lg3 00:49 Drug: Ondansetron Oral Disintegrating Tablet Oral Disintegrating Tablet 4 mg PO once lg3 Route: PO; 01:08 Follow up: Response: No adverse reaction lg3 01:09 Follow up: Response: No adverse reaction lg3 00:49 Drug: HYDROcodone-acetaminophen PO 5 mg-325 mg 1 tabs PO once Route: PO; lg3 01:08 Follow up: Response: No adverse reaction lg3 01:08 Follow up: Response: No adverse reaction; Marked relief of symptoms lg3 01:08 Drug: Lidocaine Infiltration (1 %) 5 mg Infiltration once Route: Infiltration; lg3 01:09 Follow up: Response: No adverse reaction lg3 Disposition Summary: 06/22/24 01:06 Discharge Ordered Notes: Location: Home sb4 Problem: new sb4 Symptoms: have improved sb4 Condition: Stable sb4 Diagnosis - Cutaneous abscess of face sb4 - Hyperglycemia, unspecified sb4 Followup: sb4 - With: Dana Vee DO - When: 1 week - Reason: Recheck today's complaints, Continuance of care, Re-evaluation by your physician Discharge Instructions: - Discharge Summary Sheet sb4 - Hyperglycemia sb4 - Skin Abscess, [id number] sb4 - Incision and Drainage, Care After sb4 Forms: - Antibiotic Education sb4 - Patient Portal Instructions sb4 - Leadership Thank You Letter sb4 Prescriptions: - Bactrim DS 800-160 mg Oral Tablet - take 1 tablet ORAL route every 12 hours for 10 days; 20 tablet; Refills: 0, sb4 Product Selection Permitted Signatures: Dispatcher [employer] Ines Bernard RN RN lg3 Amarilis Morgan, PAChaiC PAChaiC sb4 Marixa Oneil RN RN al5 Corrections: (The following items were deleted from the chart) 01:06 01:05 Wound Culture+[id number].[id number] ordered. EDMS EDMS
--- NOTE | 2024-06-22 01:06 | ER ---
Nurse's Notes [facility] Name: Vicky Stearns Age: 39 yrs Sex: Female : 1985 Arrival Date: 06/21/2024 Time: 22:58 Bed 12 Private MD: Diagnosis: Cutaneous abscess of face;Hyperglycemia, unspecified Presentation: 06/21 23:43 Chief complaint: Patient states: has had facial abscess off and on x1 year, has been al5 given antibiotics for it multiple times, "clindamycin at least 3 times". states it has gotten bigger and patient has now been experiencing fever and dizziness. Coronavirus screen: At this time, the client does not indicate any symptoms associated with coronavirus-19. Ebola Screen: No symptoms or risks identified at this time. Initial Sepsis Screen: Does the patient meet any 2 criteria? HR > 90 bpm. No. Patient's initial sepsis screen is negative. Does the patient have a suspected source of infection? No. Patient's initial sepsis screen is negative. Risk Assessment: Do you want to hurt yourself or someone else? Patient reports no desire to harm self or others. Onset of symptoms was June 20, 2024. 23:43 Method Of Arrival: Ambulatory al5 23:43 Acuity: JASON 4 al5 Triage Assessment: 23:45 General: Appears in no apparent distress. comfortable, Behavior is calm, cooperative. al5 Pain: Complains of pain in left jaw Pain currently is 8 out of 10 on a pain scale. EENT: No signs and/or symptoms were reported regarding the EENT system. Neuro: Level of Consciousness is awake, alert, obeys commands, Oriented to person, place, time, situation. Cardiovascular: Capillary refill < 3 seconds Patient's skin is warm and dry. Respiratory: Airway is patent Respiratory effort is even, unlabored, Respiratory pattern is regular, symmetrical. GI: No signs and/or symptoms were reported involving the gastrointestinal system. GI: Abdomen is non-distended, obese. : No signs and/or symptoms were reported regarding the genitourinary system. Derm: abscess to L lower cheek/jaw line. Musculoskeletal: No signs and/or symptoms reported regarding the musculoskeletal system. 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 - Infectious Disease History:: Denies. - Social history:: Smoking status: Patient denies any tobacco usage or history of. Screenin:46 [facility] ED Fall Risk Assessment (Adult) History of falling in the last 3 months, al5 including since admission No falls in past 3 months (0 pts) Confusion or Disorientation No (0 pts) Intoxicated or Sedated No (0 pts) Impaired Gait No (0 pts) Mobility Assist Device Used No (0 pt) Altered Elimination No (0 pt) Score/Fall Risk Level 0 - 2 = Low Risk Oriented to surroundings, Maintained a safe environment, Hourly rounding (assess needs \\T\\ fall precautionary measures) done. Abuse screen: Denies threats or abuse. Denies injuries from another. Nutritional screening: No deficits noted. Tuberculosis screening: No symptoms or risk factors identified. Assessment: 23:46 Reassessment: see triage assessment. al5 06/22 01:09 Reassessment: Patient appears in no apparent distress at this time. No changes from lg3 previously documented assessment. Patient and/or family updated on plan of care and expected duration. Pain level reassessed. Patient is alert, oriented x 3, equal unlabored respirations, skin warm/dry/pink. Vital Signs: 06/21 23:43 BP 144 / 98; Pulse 97; Resp 16; Temp 98.9; Pulse Ox 100% on R/A; Weight 124.74 kg; al5 Height 5 ft. 9 in. ; Pain 8/10; 06/22 01:15 BP 137 / 91; Pulse 89; Resp 17 S; Temp 98.5(O); Pulse Ox 100% on R/A; lg3 06/21 23:43 Body Mass Index 40.61 (124.74 kg, 175.26 cm) al5 06/21 23:43 Pain Scale: Adult al5 ED Course: 06/21 23:02 Patient arrived in ED. gm2 23:40 Amarilis Morgan PA-C is PSYCHIATRICP. sb4 23:40 Nicko Tijerina MD is Attending Physician. sb4 23:45 Triage completed. al5 23:46 Arm band placed on right wrist. Patient placed in waiting room, in view of staff al5 members, on pulse oximetry, Patient notified of wait time. 23:47 Patient has correct armband on for positive identification. Provided Education on: plan al5 of care. 06/22 01:05 Dana Vee DO is Referral Physician. sb4 01:09 Assist provider with I \\T\\ D: of an abscess on left face Set up I\\T\\D tray. Performed by lg 3 Amarilis Morgan PA-C Culture sent to lab. Patient tolerated well. Patient did not have IV access during this emergency room visit. Administered Medications: 00:49 Drug: Trimethoprim-Sulfamethoxazole PO (160 mg-800 mg (DS) 1 tablet PO once Route: PO; lg3 01:08 Follow up: Response: No adverse reaction lg3 00:49 Drug: Ondansetron Oral Disintegrating Tablet Oral Disintegrating Tablet 4 mg PO once lg3 Route: PO; 01:08 Follow up: Response: No adverse reaction lg3 01:09 Follow up: Response: No adverse reaction lg3 00:49 Drug: HYDROcodone-acetaminophen PO 5 mg-325 mg 1 tabs PO once Route: PO; lg3 01:08 Follow up: Response: No adverse reaction lg3 01:08 Follow up: Response: No adverse reaction; Marked relief of symptoms lg3 01:08 Drug: Lidocaine Infiltration (1 %) 5 mg Infiltration once Route: Infiltration; lg3 01:09 Follow up: Response: No adverse reaction lg3 Medication: 06/21 23:46 VIS not applicable for this client. al5 Outcome: 06/22 01:06 Discharge ordered by . sb4 01:15 Discharged to home ambulatory, lg3 01:15 Condition: stable 01:15 Discharge instructions given to patient, Instructed on discharge instructions, follow up and referral plans. medication usage, wound care, Demonstrated understanding of instructions, follow-up care, medications, wound care, Prescriptions given X 1, 01:17 Patient left the ED. lg3 Signatures: Ines Chapman RN RN lg3 Amarilis Morgan PA-C PA-C sb4 Karis Hodges gm2 Marixa Oneil RN RN al5 Corrections: (The following items were deleted from the chart) 01:13 06/21 23:45 Derm: abscess to R lower cheek/jaw line al5 al5
[2024-06-22 01:25] VITALS: O2SAT 100
[2024-06-22 01:30] VITALS: BP 137/91; TEMP 98.5
== END 2024-06-22 01:17 | disposition home or self-care (01) ==
LOC: ER 22:58
PROC: 0H91XZZ Drainage of Face Skin, External Approach (ICD-10-PCS; principal; 2024-06-22)
DX: L02.01 Cutaneous abscess of face (principal); R73.9 Hyperglycemia, unspecified
CPT/HCPCS: 82947; 87070; 87205; 99284; J2003; Q0162